=== PATIENT | female | born 1995 | race Caucasian/White ===

== ENCOUNTER 2021-06-28 16:49 | Observation (INO) | payer OTHER ==
[~2021-06-28 16:49] MED LIST: COLACE 100MG C100 MG PO
[2021-06-28 18:41] LABS: HEMOGLOBIN 11.9 gm/dl (12.3-15.3); RED BLOOD COUNT 4.09 M/UL (4.00-5.10); WHITE BLOOD COUNT 13.5 K/UL (4.5-11.0)
[2021-06-28 19:07] LABS: BUN/CREATININE RATIO 12 (0-10)
[2021-06-29] MEDS ORDERED: MACROBID 100 M100 MG PO (13:50)
== END 2021-06-29 14:39 | disposition home or self-care (01) ==
LOC: GENOP 16:49 → OB 17:26
PROVIDERS: ADMIT Obstetrics & Gynecology
DX: O23.02 Infections of kidney in pregnancy, second trimester (principal); O99.352 Diseases of the nervous system complicating pregnancy, second trimester; G43.909 Migraine, unspecified, not intractable, without status migrainosus; O99.342 Other mental disorders complicating pregnancy, second trimester; F32.9 Major depressive disorder, single episode, unspecified; Z87.442 Personal history of urinary calculi; Z88.2 Allergy status to sulfonamides; Z3A.16 16 weeks gestation of pregnancy; Z20.822 Contact with and (suspected) exposure to COVID-19
CPT/HCPCS: 80053; 81001; 85025; 87086; 96361; 96365; 96367; 96374; 96375; 96376; C9113; G0378; J0696; J2405; U0002

== ENCOUNTER 2021-09-24 10:53 | Outpatient (CLI) | payer OTHER ==
[~2021-09-24 10:53] MED LIST changes: +MACROBID 100 M100 MG PO
== END 2021-09-24 18:28 | disposition other institution (70) ==
LOC: GENOP 10:53
PROVIDERS: Obstetrics & Gynecology
DX: O60.03 Preterm labor without delivery, third trimester (principal); Z3A.29 29 weeks gestation of pregnancy; O23.43 Unspecified infection of urinary tract in pregnancy, third trimester; N39.0 Urinary tract infection, site not specified; O99.343 Other mental disorders complicating pregnancy, third trimester; F32.A Depression, unspecified; O99.353 Diseases of the nervous system complicating pregnancy, third trimester; G43.909 Migraine, unspecified, not intractable, without status migrainosus; Z20.822 Contact with and (suspected) exposure to COVID-19
CPT/HCPCS: 80307; 81001; 82731; 96365; 96366; 96367; 96372; 96374; J0610; J0702; J2405; J3475; J7120; U0002

== ENCOUNTER 2021-10-12 21:24 | Outpatient (CLI) | payer OTHER ==
[2021-10-12 23:33] LABS: HEMOGLOBIN 9.9 gm/dl (12.3-15.3); RED BLOOD COUNT 3.81 M/UL (4.00-5.10); WHITE BLOOD COUNT 6.9 K/UL (4.5-11.0)
== END 2021-10-13 01:50 | disposition home or self-care (01) ==
LOC: GENOP 21:24
PROVIDERS: Obstetrics & Gynecology
DX: O47.03 False labor before 37 completed weeks of gestation, third trimester (principal); O26.893 Other specified pregnancy related conditions, third trimester; R10.2 Pelvic and perineal pain; M54.50 Low back pain, unspecified; R05.9 Cough, unspecified; Z3A.32 32 weeks gestation of pregnancy
CPT/HCPCS: 80307; 81001; 83518; 85025; 96360; 96361; 96365; J0696

== ENCOUNTER 2021-10-24 12:41 | Inpatient (IN) | payer OTHER ==
[~2021-10-24] VITALS: Ht 157.5 cm; Wt 49.0 kg
[2021-10-24 13:22] LABS: HEMOGLOBIN 10.3 gm/dl (12.3-15.3); RED BLOOD COUNT 4.05 M/UL (4.00-5.10); WHITE BLOOD COUNT 12.9 K/UL (4.5-11.0)
[2021-10-24 14:26] LABS: BUN/CREATININE RATIO 11 (0-10)
[2021-10-24 22:12] LABS: HEMOGLOBIN 9.7 gm/dl (12.3-15.3); RED BLOOD COUNT 3.85 M/UL (4.00-5.10); WHITE BLOOD COUNT 12.5 K/UL (4.5-11.0)
--- NOTE | 2021-10-25 04:16 | NUR ---
0145: OB RN ROLANDO TO THE FLOOR, PERFORMED ROUTINE VAGINAL EXAM TO CHECK PT. NO CHANGES, STILL DILATED 4CM, 50%.
[2021-10-25 05:47] LABS: HEMOGLOBIN 9.1 gm/dl (12.3-15.3); RED BLOOD COUNT 3.58 M/UL (4.00-5.10); WHITE BLOOD COUNT 11.4 K/UL (4.5-11.0)
[2021-10-25 06:12] LABS: BUN/CREATININE RATIO 8 (0-10)
--- NOTE | 2021-10-25 08:17 | NUR ---
CALLED OB @0810 REQUESTING FOR BABY TO BE PUT ON A MONITOR. OB SAID THEY DO NOT HAVE A PORTAL BABY MONITOR, IT IS CENTRAL ONLY. THEY SAID THEY WILL SEND SOMEONE TO CHECK HEART TONES AT END OF SHIFT BECAUSE PT IS COVID POSITIVE. I ASSESSED PT SHE IS STILL HAVING PAIN IN HER RIGFHT UPPER QUADRANT, MORPHINE WAS GIVEN ORDERED.
--- NOTE | 2021-10-25 09:11 | NUR ---
RHONDA FROM OB CAME TO CHECK PT. HR 128, POSITIVE MOVEMENT, PALPABLE ANF VISIBLE. CERVIX 2-3CM 50% NEGATIVE 3 STATION
[2021-10-25] MEDS ORDERED: PRENATABS RX T1 EACH PO (10:07)
[2021-10-25] MEDS ORDERED: MACROBID 100 M100 MG PO (10:07)
[2021-10-25] MEDS ORDERED: FLUOXETINE HCL20 M1 PO (10:08)
== END 2021-10-26 20:49 | disposition short-term general hospital (02) | DRG 831 ==
LOC: GENOP 12:41 → OB 14:17 → CCU 23:27 → OB 10-25 13:36
PROVIDERS: Internal Medicine Critical Care Medicine; Obstetrics & Gynecology; ADMIT Obstetrics & Gynecology
PROC: B24BZZZ Ultrasonography of Heart with Aorta (ICD-10-PCS; principal; 2021-10-25)
DX: O99.891 Other specified diseases and conditions complicating pregnancy (principal); O60.03 Preterm labor without delivery, third trimester; E87.3 Alkalosis; N13.30 Unspecified hydronephrosis; O99.113 Other diseases of the blood and blood-forming organs and certain disorders involving the immune mechanism complicating pregnancy, third trimester; O36.8130 Decreased fetal movements, third trimester, not applicable or unspecified; O99.283 Endocrine, nutritional and metabolic diseases complicating pregnancy, third trimester; R06.4 Hyperventilation; R42 Dizziness and giddiness; M54.9 Dorsalgia, unspecified; R79.1 Abnormal coagulation profile; R82.71 Bacteriuria; R00.0 Tachycardia, unspecified; R74.8 Abnormal levels of other serum enzymes; O99.333 Smoking (tobacco) complicating pregnancy, third trimester; O99.613 Diseases of the digestive system complicating pregnancy, third trimester; K82.8 Other specified diseases of gallbladder; Z3A.33 33 weeks gestation of pregnancy; Z88.2 Allergy status to sulfonamides; Z87.51 Personal history of pre-term labor; Z87.448 Personal history of other diseases of urinary system; Z86.16 Personal history of COVID-19
CPT/HCPCS: ECHO; 36415; 36600; 71046; 72195; 74181; 76705; 80053; 80307; 81001; 82150; 82239; 82803; 83690; 83880; 84439; 84443; 84484; 85025; 85379; 93005; 93306; 96374; 96375; 96376; G0378; J1940; J2270; J2405; J7120; Q9967